=== PATIENT | female | born 1995 | race African-American/Black ===

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

== ENCOUNTER 2017-06-13 12:17 | Emergency (ER) | payer OTHER ==
[2017-06-13 13:00] VITALS: BP 136/85
[2017-06-13] MEDS ORDERED: Ibuprofen TAB* 600 MG PO ONE (13:37)
--- NOTE | 2017-06-13 13:38 | UC ---
Hand/Wrist HPI - HPI Summary HPI Summary: Pt presents wtih complains of ongoing right wrist pain. pt states approx 1 week ago injured wrist but does not recall specific trauma. Pt states went to [facility] ED and had xray which was neg. Pt was placed in margarita wrap instructed to take analgesia ad f.uu with pcp. Pt states sx were improving. however, at work yesterday lifted some heavy boxes and aggrevated pain. Pt states pain along dosum, ulnar area of wrist as well as 4th, 5th digits. No analgesia taken. Pt here second to increased pain Pt's medications reviewed at this visit. - History Of Current Complaint Chief Complaint: UCUpperExtremity Stated Complaint: RIGHT WRIST INJURY Time Seen by Provider: 06/13/17 13:25 Hx Obtained From: Patient, Medical Records - reviewed H+P, imaging result from [facility] Hx Last Menstrual Period: 10/2016 - has nexplanon ?: No Onset/Duration: Sudden Onset, Lasting Days Severity Initially: Mild Severity Currently: Moderate Pain Intensity: 6 Pain Scale Used: 0-10 Numeric Character Of Pain: Aching Aggravating Factor(s): Movement Alleviating: Rest Associated Signs And Symptoms: Positive: Negative - Allergies/Home Medications Allergies/Adverse Reactions: Allergies Allergy/AdvReac Type Severity Reaction Status Date / Time No Known Allergies Allergy Verified 06/13/17 12:55 Home Medications: Home Medications Etonogestrel [Nexplanon] 68 mg IMPLANT SEE INSTRUCTIONS 06/13/17 [History Confirmed 06/13/17] PMH/Surg Hx/FS Hx/Imm Hx Previously Healthy: Yes Other History Of: Negative For: HIV, Hepatitis B, Hepatitis C, Anticoagulant Therapy - Surgical History Surgical History: Yes Surgery Procedure, Year, and Place: 09/2016 - Family History Known Family History: Positive: None, Unknown, Cardiac Disease, Hypertension - Social History Occupation: Employed Full-time Lives: With Family Alcohol Use: None Substance Use Type: None Smoking Status (MU): Never Smoked Tobacco - Immunization History Vaccination Up to Date: Yes Review of Systems Constitutional: Negative Skin: Negative Eyes: Negative ENT: Negative Respiratory: Negative Cardiovascular: Negative Gastrointestinal: Negative Genitourinary: Negative Motor: Negative Neurovascular: Negative Musculoskeletal: Other: - right wrist pain Neurological: Negative Psychological: Negative All Other Systems Reviewed And Are Negative: Yes Physical Exam Triage Information Reviewed: Yes Appearance: Well-Appearing, No Pain Distress, Well-Nourished Vital Signs: Initial Vital Signs Temp 97.9 F 06/13/17 12:55 Pulse 94 06/13/17 12:55 Resp 16 06/13/17 12:55 BP 136/85 06/13/17 12:55 Pulse Ox 100 06/13/17 12:55 Vital Signs Reviewed: Yes Eye Exam: Normal ENT: Positive: Hearing grossly normal Neck exam: Normal Respiratory: Positive: No respiratory distress, No accessory muscle use Cardiovascular: Positive: Other: - 2+ radial, 2+ ulnar CBT < 2 sec Abdominal Exam: Normal Musculoskeletal: Positive: Other: - + flex/ext elbow + pronate/supinate + flex/ ext wrist with pain medial aspect dosrum, ulnar styloid pt also with pain along 4/5 MC no crepitus, no eccymosis, no edema Neurological Exam: Normal Neurological: Positive: Other: - + thumb up, a ok, finger spread, finger cross Psychological Exam: Normal Psychological: Positive: Normal Response To Family Skin Exam: Normal Diagnostics - Radiology No standard instances Radiology Interpretation Completed By: Radiologist - no fx Hand/Wrist Course/Dx - Course Course Of Treatment: Pt with ongoing pain right wrist and 4/5 MC. will check hand xray. if neg will place splint. motrin/apap. work restriction. PCP f/ u. Pt comfortable and in agreement with plan - Differential Dx/Diagnosis Provider Diagnoses: wrist sprain Discharge - Discharge Plan Condition: Stable Disposition: HOME Patient Education Materials: Wrist Sprain (ED) Forms: *Work Release Referrals: Allison Harvey NP [Primary Care Provider] - Additional Instructions: - It is recommended you alternate ibuprofen (Advil, Motrin) and tylenol every 3 hours for pain. take with food. do NOT take for more than 4-5 days - wear splint as much as possible for comfort and support - avoid heavy lifting or recurrent injury - Contact your doctor to schedule a follow-up appointment. contact your doctor or return with questions or concern
--- NOTE | 2017-06-13 14:19 | RAD ---
Indication: Right hand pain. 2 views of the right hand demonstrates no fracture. No other bone or joint abnormality is noted. IMPRESSION: No fracture of the right hand is noted.
== END 2017-06-13 14:29 | disposition home or self-care (01) ==
LOC: UCCORT 12:17
DX: S63.501A Unspecified sprain of right wrist, initial encounter (principal); X58.XXXA Exposure to other specified factors, initial encounter
CPT/HCPCS: 99213; A9270-GY; G0463

== ENCOUNTER 2017-07-07 10:26 | Emergency (ER) | payer OTHER ==
[2017-07-07 10:45] VITALS: BP 141/78
[2017-07-07] MEDS ORDERED: Albuterol HFA INHALER* 8 gm MDI INH ONE (12:06)
[2017-07-07] MEDS ORDERED: predniSONE TAB* 20 MG PO ONE (12:06)
--- NOTE | 2017-07-07 12:16 | UC ---
Respiratory Complaint HPI - HPI Summary HPI Summary: 22 yo female with cough x 2 weeks productive no f/c no n/v/d no cp or sob hx bronchitis - History of Current Complaint Chief Complaint: UCRespiratory Stated Complaint: COUGH Time Seen by Provider: 07/07/17 11:58 Hx Obtained From: Patient Hx Last Menstrual Period: Nexplanon Onset/Duration: Gradual Onset, Lasting Weeks Timing: Constant Severity Initially: Mild Severity Currently: Moderate Pain Intensity: 1 Character: Cough: Productive - green Aggravating Factors: Nothing Alleviating Factors: Nothing Associated Signs And Symptoms: Positive: Wheezing Related History: Similar Episode/Dx as: - bronchitis - Allergies/Home Medications Allergies/Adverse Reactions: Allergies Allergy/AdvReac Type Severity Reaction Status Date / Time No Known Allergies Allergy Verified 07/07/17 10:41 PMH/Surg Hx/FS Hx/Imm Hx Previously Healthy: Yes Respiratory History: Bronchitis Other History Of: Negative For: HIV, Hepatitis B, Hepatitis C, Anticoagulant Therapy - Surgical History Surgical History: Yes Surgery Procedure, Year, and Place: , 09/17/16, [place] - Family History Known Family History: Positive: None, Unknown, Cardiac Disease, Hypertension - Social History Alcohol Use: None Substance Use Type: None Smoking Status (MU): Never Smoked Tobacco - Immunization History Most Recent Influenza Vaccination: Not the Season Vaccination Up to Date: Yes Review of Systems Constitutional: Negative Skin: Negative Eyes: Negative ENT: Negative Respiratory: Cough Cardiovascular: Negative Gastrointestinal: Negative Genitourinary: Negative Motor: Negative Neurovascular: Negative Musculoskeletal: Negative Neurological: Negative Psychological: Negative Is Patient Immunocompromised?: No All Other Systems Reviewed And Are Negative: Yes Physical Exam Triage Information Reviewed: Yes Appearance: Well-Appearing, No Pain Distress, Well-Nourished Vital Signs: Initial Vital Signs Temp 98.9 F 07/07/17 10:39 Pulse 90 07/07/17 10:39 Resp 18 07/07/17 10:39 BP 141/78 07/07/17 10:39 Pulse Ox 100 07/07/17 10:39 Eyes: Positive: Conjunctiva Clear ENT: Positive: Hearing grossly normal, TMs normal. Negative: Nasal congestion, Nasal drainage, Tonsillar swelling, Tonsillar exudate, Trismus, Muffled/hoarse voice Neck: Positive: Supple, Nontender Respiratory: Positive: No respiratory distress, No accessory muscle use, Wheezing Cardiovascular: Positive: RRR Musculoskeletal: Positive: ROM Intact, No Edema Neurological: Positive: Alert Psychological Exam: Normal Skin Exam: Normal UC Diagnostic Evaluation - Laboratory O2 Sat by Pulse Oximetry: 100 - normal/not hypoxic Respiratory Course/Dx - Differential Dx/Diagnosis Provider Diagnoses: acute bronchitis with bronchospasm Discharge - Discharge Plan Condition: Stable Disposition: HOME Patient Education Materials: Acute Bronchitis (ED), Bronchospasm (ED) Referrals: Allison Harvey NP [Primary Care Provider] - 4 Days (you should also have your BP recheck at your next visit with your provider recheck in 4 days if not better)
== END 2017-07-07 12:24 | disposition home or self-care (01) ==
LOC: UCCORT 10:26
DX: J20.9 Acute bronchitis, unspecified (principal)
CPT/HCPCS: 99212; A9270-GY; G0463; J7512

== ENCOUNTER 2018-05-11 16:43 | Emergency (ER) | payer OTHER ==
[2018-05-11 17:02] VITALS: BP 126/64
--- NOTE | 2018-05-11 17:16 | UC ---
UC General HPI - HPI Summary HPI Summary: Patient has a sore wrist, not sure what she did with it. no injury, may have slept wrong, no swelling or deformity noted. - History of Current Complaint Chief Complaint: UCUpperExtremity Stated Complaint: RIGHT WRIST PAIN Time Seen by Provider: 05/11/18 16:58 Hx Obtained From: Patient Hx Last Menstrual Period: 04/19/18 Onset/Duration: Sudden Onset, Lasting Days Timing: Constant Onset Severity: Moderate Current Severity: Moderate Pain Intensity: 8 - Allergy/Home Medications Allergies/Adverse Reactions: Allergies Allergy/AdvReac Type Severity Reaction Status Date / Time No Known Allergies Allergy Verified 05/11/18 17:02 Home Medications: Home Medications NK [No Home Medications Reported] 05/11/18 [History Confirmed 05/11/18] PMH/Surg Hx/FS Hx/Imm Hx Previously Healthy: Yes Other History Of: Negative For: HIV, Hepatitis B, Hepatitis C, Anticoagulant Therapy - Surgical History Surgical History: Yes Surgery Procedure, Year, and Place: , 09/17/16, [place]. gallbladder - Family History Known Family History: Positive: None, Unknown, Cardiac Disease, Hypertension - Social History Alcohol Use: Occasionally Substance Use Type: None Smoking Status (MU): Never Smoked Tobacco - Immunization History Most Recent Influenza Vaccination: Not the 2016/2017 Season Vaccination Up to Date: Yes Review of Systems Constitutional: Negative Skin: Negative Eyes: Negative ENT: Negative Respiratory: Negative Cardiovascular: Negative Gastrointestinal: Negative Genitourinary: Negative Motor: Negative Neurovascular: Negative Musculoskeletal: Arthralgia, Decreased ROM, Myalgia Neurological: Negative Psychological: Negative Is Patient Immunocompromised?: No All Other Systems Reviewed And Are Negative: Yes Physical Exam Triage Information Reviewed: Yes Appearance: Well-Appearing, Pain Distress, Obese Vital Signs: Initial Vital Signs Temp 97.8 F 05/11/18 16:55 Pulse 95 05/11/18 16:55 Resp 16 05/11/18 16:55 BP 126/64 05/11/18 16:55 Pulse Ox 100 05/11/18 16:55 Vital Signs Reviewed: Yes Eye Exam: Normal ENT Exam: Normal Dental Exam: Normal Neck exam: Normal Respiratory Exam: Normal Respiratory: Positive: Chest non-tender, Lungs clear, Normal breath sounds Cardiovascular Exam: Normal Cardiovascular: Positive: RRR, No Murmur, Pulses Normal Abdominal Exam: Normal Abdomen Description: Positive: Nontender, No Organomegaly, Soft Musculoskeletal Exam: Normal Musculoskeletal: Positive: No Edema, ROM Limited @ - in ulnar flx due to pain Neurological Exam: Normal Neurological: Positive: Alert, Muscle Tone Normal Psychological Exam: Normal Skin Exam: Normal Course/Dx - Course Course Of Treatment: hx obtained, exam performed ,meds reviewed, spint placed and recommend OTC analgesics if necessary - Differential Dx - Multi-Symptom Provider Diagnoses: right wrist pain Discharge - Sign-Out/Discharge Documenting (check all that apply): Patient Departure - Discharge Plan Condition: Stable Disposition: HOME Patient Education Materials: Wrist Injury (ED) Referrals: Allison Harvey NP [Primary Care Provider] - Additional Instructions: Use the splint for the next few days to help rest it. you can use Ibuprofen and tylneol for pain management. soaking your wrist in warm water can also help - Billing Disposition and Condition Condition: STABLE Disposition: Home
== END 2018-05-11 17:18 | disposition home or self-care (01) ==
LOC: UCCORT 16:43
DX: M25.531 Pain in right wrist (principal)
CPT/HCPCS: 99212; G0463